=== PATIENT | male | born 1970 | race Caucasian/White ===

== ENCOUNTER 2019-07-29 08:49 | Outpatient (CLI) | payer BC, SELFPAY ==
[2019-07-29 09:21] LABS: HCG Tumor Marker 1 mIU/mL (0-3)
[2019-07-29 09:39] LABS: Lactate Dehydrogenase 144 U/L (135-225)
[2019-07-29 09:41] LABS: Tumor Marker Alpha Fetoprotein 2.2 ng/mL (0-8.3)
== END 2019-07-29 08:50 | disposition home or self-care (01) ==
LOC: LAB 08:53
PROVIDERS: PCP Family Medicine; Visit Provider Internal Medicine Medical Oncology
DX: C62.12 Malignant neoplasm of descended left testis (principal)
CPT/HCPCS: 36415; 82105; 83615; 84702

== ENCOUNTER 2019-08-04 09:14 | Outpatient (CLI) | payer BC, SELFPAY ==
--- NOTE | 2019-08-08 11:59 | ONC FU_ITS ---
Dr. Vargas Patient Follow-Up Note Patient: Scarlet Peters Unit #: [id number]: 1970 Dicatated By: Isreal Vargas M.D.Date of Visit:Aug 04, 2019 Onc Med Follow-up/Prog Note Chief Complaint: Seminoma. History of Present Illness: This is a 48 year-old man with seminoma of the left testicle, stage IA (pT1a, N0, M0). He has been in excellent general health. He had presented to Dr. Molina in July 2013 with mild discomfort in the right testicle and a palpable mass. The initial findings were consistent with an epididymal lesion. Ultrasound was recommended and did confirm spermatocele on the right, which required no further evaluation or treatment. The study also showed a small spermatocele on the left. In addition, he was incidentally noted to have a vague lesion in the left intratesticular parenchyma. The lesion had an infiltrative appearance and irregular borders, and it was felt to be suspicious for neoplasia. There was no associated mass palpable. His tumor markers were all normal. CT abdomen/pelvis showed 2 benign appearing hypodensities in the right lobe of the liver felt be consistent with incidental cysts. There was evidence of cortical atrophy in the lower lobe of the right kidney suggestive of prior reflux nephropathy. There was no abnormal lymphadenopathy or other evidence of malignancy on that study. Because of the concern of possible malignancy, he was was advised to proceed with orchiectomy. On 08/05/2013 he underwent left radical orchiectomy. The pathology report from [facility] indicated classic seminoma measuring 1.3 x 1.0 cm. The tumor was confined to the testicular parenchyma. There was limited, focal, superficial capsular invasion identified. There was no penetration of the capsule. There was no vascular/lymphatic invasion identified. The spermatic duct/spermatic cord and epididymis were free of tumor and dysplasia. His disease was determined to be stage IA (pT1a, N0, M0), and it was completely resected with the surgery. Postoperatively, he had radiation oncology consultation with Dr. Sam Hobbs and medical oncology consultation with me to discuss further treatment. The options included adjuvant radiation, adjuvant chemotherapy, or active surveillance. The overall risk of recurrence with surveillance was estimated at 15 to 20 %. The risk in his specific case was felt to likely be much less based on his small tumor size. We opted to manage him with observation. During followup there has been no evidence of recurrence. INTERIM HISTORY: His surveillance CT abdomen/pelvis on 07/17/2018 showed no adenopathy or other evidence of metastatic disease. Chest x-ray also was normal with no pulmonary nodules or adenopathy noted. He continued observation/expectant management. He is seen for a scheduled visit. He indicates that back in April and part of May had been having pain in his right testicle. Ultrasound showed a prominent right spermatocele measuring 2.4 x 1.6 x 2.3 cm, slightly smaller compared to the prior study from 2013. Also noted was a small right hydrocele. The right testicle, though, appeared normal. He was given empiric antibiotic therapy and the pain completely resolved. He has otherwise been feeling good. He has good energy and activity tolerance. ECOG score is 0. Appetite also is good, and he has gained weight. He does not have fever or night sweats. He has some allergy related sinus drainage. He has no shortness of breath, cough, or chest pain. He has no GI complaints. His acid reflux is not a problem as long as he watches his coffee intake. He has had no other symptoms. He has a little bit of aching in his joints. He has no focal neurologic symptoms. Medications: Ibuprofen 3 Tablet (of 200 mg) Oral PRN Allergies: No Known Allergies. Review of Systems: Constitutional - He is generally feeling good. His energy is good. He is working full-time and has normal activity. His appetite is good and weight is stable. No fever, night sweats, or hot flashes. ECOG score is 0, ENMT - He has seasonal allergies. No mouth sores. No sore throat or difficulty swallowing, Hematologic/Lymphatic - No abnormal bruising or bleeding, Respiratory - No shortness of breath. No cough. No pleuritic pain or hemoptysis, Cardiovascular - No angina pain. No palpitations, Gastrointestinal - No nausea or vomiting. No heartburn or acid reflux. No diarrhea or constipation. No blood in the stool or black stools, Genitourinary (M) - No dysuria or hematuria. No urinary frequency. No urgency or incontinence, Musculoskeletal - He has some general joint aches, this is worse in the mornings, Integumentary - No skin complications, Neurologic - No headache or dizziness. No numbness or tingling. No other focal neurologic symptoms, Psychiatric - No anxiety or depression. No insomnia. Vital Signs: Performed on Aug 04, 2019 09:34 Height - 74.00 in Weight - 223.8 lbs (HIGH) BSA - 2.28 sq.m BMI - 28.73 Temperature - 97.3 F (LOW) Pulse - 75 /min Respiration - 18 /min BP - 105/70 mm(hg) O2 Sat - 99 % Pain - 0 Physical Examination: Constitutional - He looks good generally, Eyes - Sclerae nonicteric. Conjunctivae clear, ENMT - No lesions noted in the oral cavity, Hematologic/Lymphatic - No cervical, clavicular, or axillary adenopathy, Respiratory - Lungs are clear with good air movement bilaterally, Cardiovascular - Heart rhythm is regular. There is no murmur, gallop, or rub noted, Abdomen - Soft. Liver and spleen are not enlarged. There is no abdominal mass or ascites noted. There is no inguinal adenopathy noted, Genitalia/Groin/Buttock (M) - Left testicle is surgically absent. The right testicle shows no mass, Extremities - No edema, Neurologic - No focal neurologic deficits noted. Lab/Imaging: He has normal tumor markers with beta-hCG 1 mIU/mL, AFP 2.2 ng/mL, and LDH level 144 U/L. Impression: 1. Patient with classical seminoma, stage IA (pT1a, N0, M0). He underwent left radical orchiectomy on 08/05/2013. 2. He has been followed on active surveillance. As of his follow-up visit in July 2018 he had completed 5 years of active surveillance with no evidence of recurrence. He had recently been given empiric antibiotic therapy for suspected epididymitis. Ultrasound of the testicle, though, was normal. He has otherwise been stable clinically. There has been no evidence of recurrence of the seminoma. Plan: He remains on observation/expectant management. He will be scheduled for a follow-up visit in 1 year. Signed By: Isreal Vargas M.D. <<Signature on File>>
== END 2019-08-04 09:15 | disposition home or self-care (01) ==
LOC: ONCMED 09:17
PROVIDERS: PCP Family Medicine; Visit Provider Internal Medicine Medical Oncology
DX: Z08 Encounter for follow-up examination after completed treatment for malignant neoplasm (principal); Z85.47 Personal history of malignant neoplasm of testis; Z90.79 Acquired absence of other genital organ(s)
CPT/HCPCS: G0463

== ENCOUNTER 2020-08-02 14:08 | Outpatient (CLI) | payer BC, SELFPAY ==
[2020-08-02 15:24] LABS: HCG Tumor Marker 1 mIU/mL (0-3); Tumor Marker Alpha Fetoprotein 1.9 ng/mL (0-8.3)
[2020-08-02 15:41] LABS: Lactate Dehydrogenase 133 U/L (135-225)
== END 2020-08-02 14:09 | disposition home or self-care (01) ==
PROVIDERS: PCP Family Medicine; Visit Provider Internal Medicine Medical Oncology
DX: C62.12 Malignant neoplasm of descended left testis (principal); Z90.79 Acquired absence of other genital organ(s)
CPT/HCPCS: 82105; 83615; 84702

== ENCOUNTER 2020-08-14 07:41 | Outpatient (CLI) | payer BC, SELFPAY ==
--- NOTE | 2020-08-15 07:46 | ONC FU_ITS ---
Dr. Vargas Patient Follow-Up Note Patient: Scarlet Peters Unit #: [id number]: 1970 Dicatated By: Isreal Vargas M.D.Date of Visit:Aug 14, 2020 Onc Med Follow-up/Prog Note Chief Complaint: Seminoma. History of Present Illness: This is a 49 year-old man with seminoma of the left testicle, stage IA (pT1a, N0, M0). He has been in excellent general health. He had presented to Dr. Molina in July 2013 with mild discomfort in the right testicle and a palpable mass. The initial findings were consistent with an epididymal lesion. Ultrasound was recommended and did confirm spermatocele on the right, which required no further evaluation or treatment. The study also showed a small spermatocele on the left. In addition, he was incidentally noted to have a vague lesion in the left intratesticular parenchyma. The lesion had an infiltrative appearance and irregular borders, and it was felt to be suspicious for neoplasia. There was no associated mass palpable. His tumor markers were all normal. CT abdomen/pelvis showed 2 benign appearing hypodensities in the right lobe of the liver felt be consistent with incidental cysts. There was evidence of cortical atrophy in the lower lobe of the right kidney suggestive of prior reflux nephropathy. There was no abnormal lymphadenopathy or other evidence of malignancy on that study. Because of the concern of possible malignancy, he was was advised to proceed with orchiectomy. On 08/05/2013 he underwent left radical orchiectomy. The pathology report from [facility] indicated classic seminoma measuring 1.3 x 1.0 cm. The tumor was confined to the testicular parenchyma. There was limited, focal, superficial capsular invasion identified. There was no penetration of the capsule. There was no vascular/lymphatic invasion identified. The spermatic duct/spermatic cord and epididymis were free of tumor and dysplasia. His disease was determined to be stage IA (pT1a, N0, M0), and it was completely resected with the surgery. Postoperatively, he had radiation oncology consultation with Dr. Sam Hobbs and medical oncology consultation with me to discuss further treatment. The options included adjuvant radiation, adjuvant chemotherapy, or active surveillance. The overall risk of recurrence with surveillance was estimated at 15 to 20 %. The risk in his specific case was felt to likely be much less based on his small tumor size. We opted to manage him with observation. During followup there was no evidence of recurrence of the seminoma. His surveillance CT abdomen/pelvis on 07/17/2018 showed no adenopathy or other evidence of metastatic disease. Chest x-ray also was normal with no pulmonary nodules or adenopathy noted. At that point he was 5 years out from surgery with no evidence for recurrence, and further routine surveillance imaging was not recommended. INTERIM HISTORY: In December 2019 he was diagnosed with COVID-19 virus infection. He described the illness has having been pretty rough, and he remained significantly fatigued for at least the next 2 months, though he did eventually recover. In April 2020 he began having red blood in the stool. He then underwent GI evaluation with Dr. Coretta Louis at [facility]. His colonoscopy on 04/27/2020 revealed edema and erythema in the terminal ileum, and edema with loss of vascular pattern, and erosions which were patchy but more diffuse in the rectum and rectosigmoid junction. Biopsies of the rectum showed active proctitis. Biopsies of the terminal ileum and remainder of the colon showed no diagnostic abnormality. He had complete resolution of symptoms on treatment with mesalamine enemas. He is seen for a scheduled visit. He has been feeling good generally. He says that early in July he was fatigued and he noted some slightly enlarged cervical lymph nodes, but those symptoms subsequently resolved. His energy is back to normal now. His ECOG score is 0. He has good appetite. He has no fever or night sweats. He has no shortness of breath, cough, or chest pain. He currently he has no GI or complaints. His acid reflux symptoms completely resolved when he stopped drinking coffee. He has had no further rectal bleeding. His right knee had been bothering him for a while, but that has now resolved. He has no other joint or bone pain. He does not complain of headache or dizziness. He has no focal neurologic symptoms. Medications: Ibuprofen 3 Tablet (of 200 mg) Oral PRN Allergies: No Known Allergies. Vital Signs: Performed on Aug 14, 2020 11:52 Height - 74.00 in Weight - 223.2 lbs (LOW) BSA - 2.28 sq.m BMI - 28.66 Temperature - 97.1 F (LOW) Pulse - 96 /min Respiration - 18 /min BP - 117/78 mm(hg) O2 Sat - 97 % Pain - 0 Fatigue - 0 Physical Examination: Constitutional - He looks good generally, Eyes - Sclerae nonicteric. Conjunctivae clear, ENMT - No lesions noted in the oral cavity, Hematologic/Lymphatic - No cervical, clavicular, or axillary adenopathy, Respiratory - Lungs are clear with good air movement bilaterally, Cardiovascular - Heart rhythm is regular. There is no murmur, gallop, or rub noted, Abdomen - Soft. Liver and spleen are not enlarged. There is no abdominal mass or ascites noted. There is no inguinal adenopathy noted, Genitalia/Groin/Buttock (M) - Left testicle is surgically absent. The right testicle shows no mass, Extremities - No edema, Neurologic - No focal neurologic deficits noted. Lab/Imaging: Test performed on Aug 02, 2020 14:20 HCG, Serum (Quant) 1 mIU/mL LDH (Total) 133 U/L AFP 1.9 ng/mL Problem List: 1. Classical seminoma, stage IA (pT1a, N0, M0). He underwent left radical orchiectomy on 08/05/2013. 2. He was diagnosed with COVID-19 virus infection in December 2019. He had gradual but otherwise uneventful recovery. 3. In April 2020 he presented with rectal bleeding. He was found on colonoscopy to have proctitis. His symptoms improved on treatment with mesalamine enemas. Problems Addressed with this Encounter and Plan: Patient with classical seminoma, stage IA (pT1a, N0, M0). He underwent left radical orchiectomy on 08/05/2013. He has been followed on active surveillance. As of his follow-up visit in July 2018 he had completed 5 years of active surveillance with no evidence of recurrence. At that point he had recently been given empiric antibiotic therapy for suspected epididymitis. Ultrasound of the testicle, though, was normal. His surveillance chest x-ray and CT abdomen/pelvis were negative. In the absence of any evidence of recurrence of the seminoma, further routine surveillance imaging was not recommended. His further clinical course was complicated by COVID-19 virus infection in December 2019 and by an episode of proctitis in April 2020. He has had complete recovery. Overall he appears to be doing well clinically with no evidence of recurrence of the seminoma. He remains on expectant management. I will see him again in 1 year. Signed By: Isreal Vargas M.D. <<Signature on File>>
== END 2020-08-14 07:42 | disposition home or self-care (01) ==
LOC: ONCMED 07:45
PROVIDERS: PCP Family Medicine; Visit Provider Internal Medicine Medical Oncology
DX: Z08 Encounter for follow-up examination after completed treatment for malignant neoplasm (principal); Z85.47 Personal history of malignant neoplasm of testis; Z90.79 Acquired absence of other genital organ(s); K62.89 Other specified diseases of anus and rectum; Z86.16 Personal history of COVID-19; Z79.899 Other long term (current) drug therapy
CPT/HCPCS: G0463

== ENCOUNTER 2020-09-12 22:22 | Emergency (ER) | payer BC, SELFPAY ==
[2020-09-12 22:33] VITALS: BP 125/86; PULSE 92; RESP 20; TEMP 37.2; O2SAT 98; BMI 28.8
--- NOTE | 2020-09-12 22:52 | XRR_ITS ---
PROCEDURE INFORMATION: Exam: XR Chest Exam date and time: 09/12/2020 10:52 PM Age: 50 years old Clinical indication: Sternal or substernal pain; Patient HX: Substernal/epigastric pain. History of testicular cancer. ; Additional info: Cp TECHNIQUE: Imaging protocol: XR of the chest. Views: 1 view. COMPARISON: CR Chest 2 views* [id number] 07/17/2018 8:23 AM FINDINGS: Lungs: Unremarkable. No consolidation. Pleural spaces: Unremarkable. No pleural effusion. No pneumothorax. Heart/Mediastinum: Unremarkable. No cardiomegaly. Bones/joints: Unremarkable. XR/XR chest 1V portable [id number] IMPRESSION: No acute disease.
[2020-09-12 23:09] LABS: Basophils # 0.1 10^3/uL (0.0-0.1); Basophils % 0.7 %; Eosinophils # 0.2 10^3/uL (0.0-0.8); Eosinophils % 2.7 %; Hematocrit 42.2 % (42.0-52.0); Hemoglobin 14.3 g/dL (11.7-16.6); Lymphocytes # 2.3 10^3/uL (0.8-4.8); Lymphocytes % 30.5 %; Mean Corpuscular HGB Conc 33.9 g/dL (30.0-36.0); Mean Corpuscular Hemoglobin 30.8 pg (28.0-34.0); Mean Corpuscular Volume 90.9 fL (80-94); Monocytes # 0.9 10^3/uL (0.2-0.9); Monocytes % 11.5 %; Neutrophils # 4.01 10^3/uL (1.8-7.7); Neutrophils % 54.3 %; Nucleated Red Blood Cells % 0 %; Platelet Count 242 10^3/cmm (130-400); Red Blood Count 4.64 10^6/uL (4.1-5.3); Red Cell Distribution Width 12.6 % (12.1-15.1); White Blood Count 7.4 10^3/uL (4.0-10.0)
[2020-09-12 23:19] LABS: Troponin(5th) Baseline 6 ng/L (0-15)
[2020-09-12 23:21] LABS: Alanine Aminotransferase 17 U/L (0-41); Albumin Level 4.2 g/dL (3.5-5.2); Alkaline Phosphatase 69 IU/L (40-130); Anion Gap 14.1 (5-19); Aspartate Amino Transferase 13 U/L (0-40); Blood Urea Nitrogen 12 mg/dL (6-20); Calcium 8.9 mg/dL (8.5-10.5); Carbon Dioxide 25 mmol/L (22-29); Chloride 104 mmol/L (98-107); Glomerular Filtration Rate 78.5 mL/min (90-130); Glucose 111 mg/dL (65-115); Lipase 37 U/L (13-60); Osmolality Calculated 288 mOsm/kg (285-295); Potassium 4.1 mmol/L (3.5-5.1); Sodium 139 mmol/L (136-145); Total Bilirubin 0.3 mg/dL (0.15-1.2); Total Protein 6.2 g/dL (6.6-8.7)
--- NOTE | 2020-09-13 01:27 | W.ED.ABDPA2 ---
HPI - Abdominal Pain General: Chief Complaint: Abdominal Pain Stated Complaint: pain in sternum Time Seen by Provider: 09/13/20 01:23 Source: patient Mode of arrival: ambulatory Limitations: no limitations History of Present Illness: HPI narrative: 50-year-old male states he had a second meningitis shot yesterday states that this morning at 10 AM he started having some epigastric pain that is continued throughout the day. States pain is in his upper epigastric and lower chest been a sharp pain. He states that resolved times yesterday. States pain is currently 1 out of 10. He said no vomiting or diarrhea. Denies any fever. Denies any cough. Denies any worsening proving factors. Associated Symptoms: Denies chills, dysuria and fever(s) Review of Systems Const: Denies: fever(s), chills, body aches or change in appetite Eyes: Denies: blurry vision or eye discomfort ENMT: Denies: throat pain or dental pain Card: Denies: chest pain Resp: Denies: dyspnea GI: Reports: abdominal pain : Denies: dysuria Musc: Denies: neck pain or back pain Skin/Breast: Denies: rash Neuro: Denies: headache(s) Psych: Denies: depression Kevin/Lymph: Denies: easy bruising All/Imm: Denies: urticaria Physical Exam Const: COMMON NORMALS: no acute distress, patient oriented x3 and healthy appearing HENMT: COMMON NORMALS: normocephalic and atraumatic HEAD & SCALP: normocephalic and atraumatic Eye: COMMON NORMALS: Equal, round and reactive pupils present and EOMs intact bilaterally PUPIL: Yes Equal, round and reactive pupils present Neck/C-Spine: COMMON NORMALS: full ROM and supple Chest: COMMONS NORMALS: normal inspection of the chest and normal palpation of entire chest wall Resp: COMMON NORMALS: normal respiratory effort, No retractions, No use of accessory muscles and clear to auscultation bilaterally AUSCULTATION: clear to auscultation bilaterally Cardio: COMMON NORMALS: regular rate, regular rhythm and No murmurs present (Cardio) RATE: regular rate RHYTHM: regular rhythm GI: COMMON NORMALS: Normal to inspection, nondistended, normoactive bowel sounds present, Soft to palpation, non-tender and no masses PALPATION: Yes Soft to palpation Extremity: COMMON NORMALS: normal to inspection and full ROM Neuro: COMMON NORMALS: patient oriented x3, moves all extremities and no focal motor deficits Psych: COMMON NORMALS: mental status grossly normal, Normal thought process present and cooperative THOUGHT PROCESS: Normal thought process present Skin: COMMON NORMALS: no rashes or lesions noted and no wounds GENERAL SKIN EXAM: no rashes or lesions noted Course Vital Signs: Vital signs: Vital Signs Temperature 99.0 F 09/12/20 22:33 Pulse Rate 92 09/12/20 22:33 Respiratory Rate 20 H 09/12/20 22:33 Blood Pressure 125/86 09/12/20 22:33 Pulse Oximetry 98 09/12/20 22:33 MDM - Abdominal Pain MDM Narrative: Medical decision making narrative: Patient presents here with abdominal pain and some chest pain is likely related to his vaccination. His exam here is benign he has no abdominal tenderness. EKG and troponin and blood work is all normal. Is no signs of acute surgical abdomen. He has no signs of dissection or aneurysm. He has no signs of acute coronary syndrome. He is stable for discharge and is to follow-up his PCP and return if any worsening symptoms. He understands and agrees the plan. Lab Data: Labs: Lab Results 09/12/20 09/12/20 09/12/20 Range/Units 22:55 22:55 22:55 WBC 7.4 (4.0-10.0) 10^3/ uL RBC 4.64 (4.1-5.3) 10^6/u L Hgb 14.3 (11.7-16.6) g/dL Hct 42.2 (42.0-52.0) % MCV 90.9 (80-94) fL MCH 30.8 (28.0-34.0) pg MCHC 33.9 (30.0-36.0) g/dL RDW 12.6 (12.1-15.1) % Plt Count 242 (130-400) 10^3/c mm MPV 9.0 (7.4-10.4) fL Neut % (Auto) 54.3 % Lymph % (Auto) 30.5 % [place] % (Auto) 11.5 % Eos % (Auto) 2.7 % Baso % (Auto) 0.7 % Neut # (Auto) 4.01 (1.8-7.7) 10^3/u L Lymph # (Auto) 2.3 (0.8-4.8) 10^3/u L [place] # (Auto) 0.9 (0.2-0.9) 10^3/u L Eos # (Auto) 0.2 (0.0-0.8) 10^3/u L Baso # (Auto) 0.1 (0.0-0.1) 10^3/u L Nucleated RBC % (a uto) 0 % Nucleated RBCs # 0.0 /100WBC Sodium 139 (136-145) mmol/L Potassium 4.1 (3.5-5.1) mmol/L Chloride 104 (98-107) mmol/L Carbon Dioxide 25 (22-29) mmol/L Anion Gap 14.1 (5-19) BUN 12 (6-20) mg/dL Creatinine 1.0 (0.7-1.2) mg/dL GFR Calculation 78.5 L (90-130) mL/min Glucose 111 (65-115) mg/dL Calculated Osmolal ity 288 (285-295) mOsm/k g Calcium 8.9 (8.5-10.5) mg/dL Total Bilirubin 0.3 (0.15-1.2) mg/dL AST 13 (0-40) U/L ALT 17 (0-41) U/L Alkaline Phosphata se 69 (40-130) IU/L Troponin T Baselin e 6 (0-15) ng/L Total Protein 6.2 L (6.6-8.7) g/dL Albumin 4.2 (3.5-5.2) g/dL Globulin 2.0 (1.3-4.6) g/dL Lipase 37 (13-60) U/L Imaging Data ^: CXR: Attestation: I personally reviewed and interpreted this imaging study as follows: Radiologist's impression: no acute abnormality EKG Data ^: EKG 1: Attestation: I personally reviewed and interpreted this EKG as follows: EKG interpretation date: 09/12/20 EKG interpretation time: 22:45 Interpretation: nsr hr [address] or t wave abnormalities qrs 92 qtc 409 Discharge Plan Discharge Patient Disposition: Home Clinical Impression: Abdominal pain Qualifiers: Abdominal location: epigastric Qualified Code(s): R10.13 - Epigastric pain Condition: Stable Discharge Orders: Discharge ED (Routine); Ordered 09/13/20 Ordered By: Gi Lawson Referrals: Todd Zamarripa MD [Primary Care Provider] - 4-7 days Discharge Diet: Advance as tolerated Discharge Activity: Resume usual activity Patient Instructions: Abdominal Pain (ED) Coding Level of Care Code ED [facility]er for Chg Fwd Exam Comprehensive
[2020-09-13 01:44] VITALS: BP 128/72; PULSE 68; RESP 18; O2SAT 100
== END 2020-09-13 01:46 | disposition home or self-care (01) ==
PROVIDERS: Emergency Provider Emergency Medicine; PCP Family Medicine
DX: R10.13 Epigastric pain (principal)
CPT/HCPCS: 71045; 80053; 83690; 84484; 85025; 99282

== ENCOUNTER 2021-05-21 09:08 | Outpatient (CLI) | payer BC, SELFPAY | END 2021-05-21 09:09 | disposition home or self-care (01) | PROVIDERS: PCP Family Medicine; Visit Provider Internal Medicine Medical Oncology | DX: C62.12 Malignant neoplasm of descended left testis (principal) | CPT/HCPCS: 36415; 84153 ==

== ENCOUNTER 2021-10-08 07:59 | Oncology outpatient (recurring) (ONCR) | payer BC, SELFPAY ==
[2021-10-04 10:43] LABS: Basophils # 0.1 10^3/uL (0.0-0.1); Basophils % 0.9 %; Eosinophils # 0.1 10^3/uL (0.0-0.8); Eosinophils % 1.4 %; Hematocrit 44.9 % (42.0-52.0); Hemoglobin 15.2 g/dL (11.7-16.6); Lymphocytes # 2.3 10^3/uL (0.8-4.8); Lymphocytes % 35.3 %; Mean Corpuscular HGB Conc 33.9 g/dL (30.0-36.0); Mean Corpuscular Hemoglobin 31.2 pg (28.0-34.0); Mean Corpuscular Volume 92.2 fl (80-94); Mean Platelet Volume 9.1 fL (7.4-10.4); Monocytes # 0.5 10^3/uL (0.2-0.9); Monocytes % 8.4 %; Neutrophils # 3.45 10^3/uL (1.8-7.7); Neutrophils % 53.5 %; Nucleated Red Blood Cells % 0 %; Platelet Count 263 10^3/cmm (130-400); Red Blood Count 4.87 10^6/uL (4.1-5.3); Red Cell Distribution Width 12.7 % (12.1-15.1); White Blood Count 6.5 10^3/uL (4.0-10.0)
[2021-10-04 11:13] LABS: Estmated Average Glucose 97
[2021-10-04 11:21] LABS: HCG Tumor Marker 1 mIU/mL (0-3); Prostate Specific Antigen 0.918 ng/mL (0-4); Testosterone Total 429.1 ng/dL (193-740); Tumor Marker Alpha Fetoprotein 2.1 ng/mL (0-8.3)
[2021-10-04 11:34] LABS: Alanine Aminotransferase 22 U/L (0-41); Albumin Level 4.2 g/dL (3.5-5.2); Alkaline Phosphatase 59 U/L (40-130); Anion Gap 14.4 (5-19); Aspartate Amino Transferase 16 U/L (0-40); Blood Urea Nitrogen 11 mg/dL (6-20); Calcium 9.2 mg/dL (8.5-10.5); Carbon Dioxide 25 mmol/L (22-29); Chloride 104 mmol/L (98-107); Chol HDL Ratio 3.13 mg/dL (1.0-5.00); Cholesterol 172 mg/dL (0-200); Globulin 2.4 g/dL (1.3-4.6); Glomerular Filtration Rate 78.2 mL/min (90-130); Glucose 89 mg/dL (65-115); HDL Cholesterol 55 mg/dL (60-100); LDL Cholesterol Calculated 104 mg/dL (50-129); LDL HDL Ratio 1.89 RATIO (0.00-3.22); Lactate Dehydrogenase 142 U/L (135-225); Osmolality Calculated 287 mOsm/kg (285-295); Potassium 4.4 mmol/L (3.5-5.1); Sodium 139 mmol/L (136-145); Total Bilirubin 0.6 mg/dL (0.15-1.2); Total Protein 6.6 g/dL (6.6-8.7); Triglycerides 65 mg/dL (0-150)
== END 2021-10-17 23:59 | disposition home or self-care (01) ==
PROVIDERS: PCP Family Medicine; Visit Provider Internal Medicine Medical Oncology
DX: Z53.9 Procedure and treatment not carried out, unspecified reason (principal)
CPT/HCPCS: 36415; 80053; 80061; 82105; 83036; 83615; 84153; 84403; 84702; 85025

== ENCOUNTER 2022-06-27 13:46 | Outpatient (CLI) | payer BC, SELFPAY | END 2022-06-27 13:47 | disposition home or self-care (01) | LOC: LAB 14:04 | PROVIDERS: PCP Family Medicine; Visit Provider Internal Medicine Interventional Cardiology | DX: N40.1 Benign prostatic hyperplasia with lower urinary tract symptoms (principal) | CPT/HCPCS: 84153 ==

== ENCOUNTER 2023-07-29 16:22 | Outpatient (CLI) | payer BC, SELFPAY | END 2023-07-29 16:23 | disposition home or self-care (01) | PROVIDERS: PCP Family Medicine; Visit Provider Urology | DX: Z12.5 Encounter for screening for malignant neoplasm of prostate (principal) | CPT/HCPCS: 36415; 84153 ==